=== PATIENT | male | born 1995 | race Caucasian/White ===

== ENCOUNTER → 2019-08-23 11:57 | Outpatient (BNVA) | payer OTHER, SELFPAY | PROVIDERS: Visit Provider Nurse Practitioner Family | DX: J06.9 Acute upper respiratory infection, unspecified (principal); B96.89 Other specified bacterial agents as the cause of diseases classified elsewhere | CPT/HCPCS: 87804 ==

== ENCOUNTER 2024-08-02 16:56 | Emergency (ER) | payer MEDICAID, SELFPAY ==
[2024-08-02 17:05] VITALS: BP 143/88; PULSE 76; RESP 18; TEMP 36.4; O2SAT 99; BMI 32.5
[2024-08-02 17:40] LABS: Basophils % 0.5 %; Eosinophils # 0.1 10^3/uL (0.0-0.8); Hematocrit 48.5 % (37-53); Lymphocytes # 2.6 10^3/uL (0.8-4.8); Lymphocytes % 32.4 %; Mean Corpuscular HGB Conc 34.6 g/dL (30-55); Mean Corpuscular Volume 83.8 fl (82-101); Mean Platelet Volume 9.1 fL (7.4-10.4); Monocytes # 0.8 10^3/uL (0.2-0.9); Monocytes % 9.7 %; Neutrophils # 4.43 10^3/uL (1.8-7.7); Nucleated Red Blood Cells % 0 %; Platelet Count 280 10^3/cmm (157-399); Red Blood Count 5.79 10^6/uL (3.85-5.65); Red Cell Distribution Width 12.7 % (12.1-15.1); White Blood Count 7.91 10^3/uL (3.29-11.43)
[2024-08-02 17:57] LABS: Alanine Aminotransferase 51 U/L (0-41); Alkaline Phosphatase 99 U/L (40-130); Anion Gap 15.9 (5-19); Aspartate Amino Transferase 25 U/L (0-40); Blood Urea Nitrogen 14 mg/dL (6-20); Calcium 9.8 mg/dL (8.5-10.5); Carbon Dioxide 25 mmol/L (22-29); Chloride 99 mmol/L (98-107); Creatinine Clr Calc Pharmacy 154.3462; Globulin 3.4 g/dL (1.3-4.6); Glomerular Filtration Rate 99.8 mL/min (90-130); Glucose 93 mg/dL (65-115); Lipase 21 U/L (13-60); Osmolality Calculated 282 mOsm/kg (285-295); Potassium 3.9 mmol/L (3.5-5.1); Sodium 136 mmol/L (136-145); Total Protein 8.4 g/dL (6.6-8.7)
--- NOTE | 2024-08-02 19:03 | W.ED.GENADLT ---
HPI - General Adult General: Chief complaint: General Medical Stated complaint: respitory problems to diaherra Time Seen by Provider: 08/02/24 18:56 History of Present Illness: 28-year-old man who has had diarrhea for about a week. He said initially he had some respiratory symptoms and then had some nausea and a couple episodes of vomiting. Since then he is just had diarrhea. 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 He was concerned about this. He does not have any focal abdominal pain. No weakness. Vitals are normal. Related Data Previous Rx's Medication Instructions Recorded ondansetron 4 mg disintegrating 4 mg PO Q8H PRN nausea and 08/02/24 tablet vomiting #10 tabs Allergies Allergy/AdvReac Type Severity Reaction Status Date / Time amoxicillin [From Augmentin] Allergy ADR-Gastrointestinal Verified 08/02/24 17:08 Upset clavulanic acid Allergy ADR-Gastrointestinal Verified 08/02/24 17:08 [From Augmentin] Upset Review of Systems Narrative: Constitutional symptoms: Negative except as documented in HPI. Skin symptoms: Negative except as documented in HPI. Eye symptoms: Negative except as documented in HPI. ENMT symptoms: Negative except as documented in HPI. Respiratory symptoms: Negative except as documented in HPI. Cardiovascular symptoms: Negative except as documented in HPI. Gastrointestinal symptoms: Negative except as documented in HPI. Genitourinary symptoms: Negative except as documented in HPI. Musculoskeletal symptoms: Negative except as documented in HPI. Neurologic symptoms: Negative except as documented in HPI. Psychiatric symptoms: Negative except as documented in HPI. Endocrine symptoms: Negative except as documented in HPI. PFS ED PFSH: Family History Grandfather Diabetes Family/Other Diabetes Brother Thyroid condition Father Thyroid condition Sister Thyroid condition Social History Smoking and tobacco/nicotine status: current every day tobacco/nicotine user cigarettes Packs smoked per day: 1 Quit status (tobacco/nicotine): not considering quitting Second hand smoke exposure: No Alcohol intake: current Alcohol intake frequency: holidays/special occasions only Substance/Drug Use: never Adopted: No Caregiver/support person: Yes Lives independently: No Household members: spouse and children Housing: House Marital status: Number of children: 2 Current occupational status: employed Sexually active: Yes Do you think of yourself as: Straight/Heterosexual Current gender identity: Male Physical Exam Narrative: EXAM NARRATIVE: General: Alert, no acute distress. Skin: Warm, dry. Head: Normocephalic, atraumatic. Neck: Supple, trachea midline. Eye: Extraocular movements are intact. Ears, nose, mouth and throat: mucosa moist. Cardiovascular: Regular, Normal peripheral perfusion. Respiratory: Lungs are clear to auscultation, respirations are non-labored, breath sounds are equal, Symmetrical chest wall expansion. Gastrointestinal: Soft, Nontender, Non distended Musculoskeletal: Normal ROM, no deformity. Neurological: Alert and oriented, No focal neurological deficit observed. Psychiatric: Cooperative, appropriate mood & affect. Course Vital Signs: Vital signs: Vital Signs Temperature 97.6 F 08/02/24 17:05 Pulse Rate 76 08/02/24 17:05 Respiratory Rate 18 08/02/24 17:05 Blood Pressure 143/88 08/02/24 17:05 Pulse Oximetry 99 08/02/24 17:05 Oxygen Delivery Me thod Room Air 08/02/24 17:05 MDM - General Adult Medical Decision Making Lab Review: Laboratory results were reviewed and interpreted by myself the emergency room physician. Lab work is unremarkable. No leukocytosis. I reviewed the patient's medical record. Assessment and plan: Gastroenteritis - Discharged home - Discussed plan with patient. Answered any questions. - Evaluation and treatment of this problem were appropriate in the emergency setting. Lab Data 08/02/24 17:29 08/02/24 17:29 Laboratory Results WBC 7.91 10^3/uL (3.29-11.43) 08/02/24 17: RBC 5.79 10^6/uL (3.85-5.65) H 08/02/24 17: Hgb 16.80 g/dL (11.27-16.99) 08/02/24 17: Hct 48.5 % (37-53) 08/02/24 17: MCV 83.8 fl (82-101) 08/02/24 17: MCH 29.0 pg (27-33) 08/02/24 17: MCHC 34.6 g/dL (30-55) 08/02/24 17: RDW 12.7 % (12.1-15.1) 08/02/24 17: Plt Count 280 10^3/cmm (157-399) 08/02/24 17: MPV 9.1 fL (7.4-10.4) 08/02/24 17: Neut % (Auto) 56.0 % 08/02/24 17: Lymph % (Auto) 32.4 % 08/02/24 17: [place] % (Auto) 9.7 % 08/02/24 17: Eos % (Auto) 1.0 % 08/02/24 17: Baso % (Auto) 0.5 % 08/02/24 17: Neut # (Auto) 4.43 10^3/uL (1.8-7.7) 08/02/24: Lymph # (Auto) 2.6 10^3/uL (0.8-4.8) 08/02/24 17: [place] # (Auto) 0.8 10^3/uL (0.2-0.9) 08/02/24 17: Eos # (Auto) 0.1 10^3/uL (0.0-0.8) 08/02/24 17: Baso # (Auto) 0.0 10^3/uL (0.0-0.1) 08/02/24 17: Nucleated RBC % (auto) 0 % 08/02/24 17: Nucleated RBCs # 0.0 /100WBC 08/02/24 17: Sodium 136 mmol/L (136-145) 08/02/24 17: Potassium 3.9 mmol/L (3.5-5.1) 08/02/24 17: Chloride 99 mmol/L (98-107) 08/02/24 17: Carbon Dioxide 25 mmol/L (22-29) 08/02/24 17: Anion Gap 15.9 (5-19) 08/02/24 17: BUN 14 mg/dL (6-20) 08/02/24 17: Creatinine 0.9 mg/dL (0.7-1.2) 08/02/24 17: GFR Calculation 99.8 mL/min (90-130) 08/02/24 17: Glucose 93 mg/dL (65-115) 08/02/24 17:29 Calculated Osmolality 282 mOsm/kg (285-295) L 08/02/24 17:29 Calcium 9.8 mg/dL (8.5-10.5) 08/02/24 17:29 Total Bilirubin 2.0 mg/dL (0.15-1.2) H 08/02/24 17:29 AST 25 U/L (0-40) 08/02/24 17:29 ALT 51 U/L (0-41) H 08/02/24 17:29 Alkaline Phosphatase 99 U/L (40-130) 08/02/24 17:29 Total Protein 8.4 g/dL (6.6-8.7) 08/02/24 17:29 Albumin 5.0 g/dL (3.5-5.2) 08/02/24 17:29 Globulin 3.4 g/dL (1.3-4.6) 08/02/24 17:29 Lipase 21 U/L (13-60) 08/02/24 17:29 No radiology studies performed this visit Discharge Plan Discharge Patient Disposition: Home Clinical Impression: Viral gastroenteritis Condition: Stable Prescriptions: New ondansetron 4 mg tablet,disintegrating 4 mg PO Q8H PRN (Reason: nausea and vomiting) Qty: 10 0RF Discharge Orders: Discharge ED (Routine); Ordered 08/02/24 Ordered By: Hollie Melendez Discharge Diet: Advance as tolerated Discharge Activity: Increase activity as tolerated Patient Instructions: Gastroenteritis (ED), Opioid Safety, Pain Management Activity Restrictions/Additional Instructions: If diarrhea symptoms continue, you may need to have stool studies. This likely will need to be done at your primary care physician's office. Thank you for choosing [facility] for your healthcare needs today. Please realize this is an emergency room and that we are providing you with a medical screening exam and this may not be complete and all inclusive of all the testing and or work up that you may need to determine your ailment or severity of your illness. You have been screened and evaluated and felt safe for discharge. Health conditions do change or evolve sometimes and as such it is important that you follow up with your Primary Doctor to be re checked, 3-5 days is a general good time frame for follow up. You are always welcome to return to the ED for re assessment if your symptoms are worsening or you have new concerns Coding Level of Care Code ED Asset Management Coordinator for Anabel Ceja
[2024-08-02 19:15] VITALS: BP 112/78; PULSE 77; RESP 16; O2SAT 98
== END 2024-08-02 19:14 | disposition home or self-care (01) ==
PROVIDERS: Emergency Medicine; Emergency Provider Emergency Medicine
DX: A08.4 Viral intestinal infection, unspecified (principal); F17.210 Nicotine dependence, cigarettes, uncomplicated
CPT/HCPCS: 36415; 80053; 83690; 85025; 99284